=== PATIENT | female | born 1950 | race Caucasian/White ===

== ENCOUNTER 2017-04-18 07:50 | Outpatient (CLI) | payer OTHER ==
[2017-04-18 12:15] LABS: BASOPHILS # (AUTO) 0.1 10^3/uL (0.0-0.1); BASOPHILS % (AUTO) 1.1 %; EOSINOPHILS # (AUTO) 0.2 10^3/uL (0.0-0.7); EOSINOPHILS % (AUTO) 3.9 %; HCT - HEMATOCRIT 39.3 % (37.0-47.0); LYMPHOCYTES # (AUTO) 1.2 10^3/uL (1.5-3.5); LYMPHOCYTES % (AUTO) 23.8 %; MEAN CORPUSCULAR HEMOGLOBIN 32.1 pg (27.0-31.0); MEAN CORPUSCULAR HGB CONC 33.2 g/dL (32.0-36.0); MEAN CORPUSCULAR VOLUME 96.6 fL (81.0-99.0); MEAN PLATELET VOLUME 8.4 fL (7.9-10.8); MONOCYTES # (AUTO) 0.4 10^3/uL (0.0-1.0); MONOCYTES % (AUTO) 7.4 %; NEUTROPHILS # (AUTO) 3.1 10^3/uL (1.5-6.6); NEUTROPHILS % (AUTO) 63.8 %; RED BLOOD COUNT 4.07 10^6/uL (4.20-5.40); RED CELL DISTRIBUTION WIDTH 12.3 % (12.0-15.0); UNCORRECTED WHITE BLOOD COUNT 4.9 x10^3/uL; WHITE BLOOD COUNT 4.9 x10^3/uL (4.8-10.8)
[2017-04-18 12:27] LABS: ALBUMIN/GLOBULIN RATIO 1.6 (1.0-2.2); BILIRUBIN,TOTAL 0.6 mg/dL (0.2-1.0); BUN - BLOOD UREA NITROGEN 15 mg/dL (6-20); CARBON DIOXIDE - CO2 27 mmol/L (21-32); CHLORIDE 104 mmol/L (101-111); CREATININE 0.7 mg/dL (0.4-1.0); GFR - MDRD 83 (>89); GLUCOSE 84 mg/dL (70-100); IRON 105 ug/dL (28-170); POTASSIUM 4.1 mmol/L (3.5-5.0); SODIUM 141 mmol/L (135-145); TOTAL IRON BINDING CAPACITY 283 ug/dL (250-450); TOTAL PROTEIN 6.5 g/dL (6.7-8.2); TRANSFERRIN 202 mg/dL (192-382)
[2017-04-18 12:38] LABS: THYROID STIMULATING HORMONE 2.14 uIU/mL (0.34-5.60)
[2017-04-18 12:44] LABS: FERRITIN 94.9 ng/mL (11.0-306.8)
[2017-04-18 13:10] LABS: CHOL/HDL RATIO 3.5 (<4.4); CHOLESTEROL 244 mg/dL; HDL CHOLESTEROL 70 mg/dL; LDL/HDL RATIO 2.2 (<4.4); TRIGLYCERIDES 114 mg/dL; VLDL CHOLESTEROL 23 mg/dL
== END 2017-04-18 07:51 | disposition home or self-care (01) ==
LOC: LAB.F 07:50
PROVIDERS: ATTEND Nurse Practitioner Primary Care
DX: A60.00 Herpesviral infection of urogenital system, unspecified (principal); R12 Heartburn; R68.89 Other general symptoms and signs; R42 Dizziness and giddiness; R79.0 Abnormal level of blood mineral; J45.998 Other asthma; K30 Functional dyspepsia; M19.049 Primary osteoarthritis, unspecified hand; G43.909 Migraine, unspecified, not intractable, without status migrainosus
CPT/HCPCS: 36415; 80053; 80061; 82728; 83540; 84443; 84466; 85025

== ENCOUNTER 2017-06-25 09:51 | Outpatient (CLI) | payer MEDICARE ==
--- NOTE | 2017-06-27 10:11 | XRAY Report ---
DATE OF SERVICE: 06/25/2017 LEFT FOOT: 06/25/2017 No comparison. INDICATION: Second toe pain for 2 months. FINDINGS Normal alignment. No evidence of acute fracture. There are mild degenerative changes of the first metatarsophalangeal joint. IMPRESSION: Mild osteoarthritis of the first MTP joint. TD: 06/25/2017 19:47 [facility]
== END 2017-06-25 09:52 | disposition home or self-care (01) ==
LOC: DI 09:51
PROVIDERS: ATTEND Nurse Practitioner Primary Care
DX: M19.072 Primary osteoarthritis, left ankle and foot (principal)

== ENCOUNTER 2017-12-29 08:14 | Emergency (ER) | payer MEDICARE ==
[2017-12-29 08:32] VITALS: BP 130/86
--- NOTE | 2017-12-29 09:12 | ED Physician Documentation ---
PD HPI URI - Stated complaint Stated Complaint: SOA/COUGH - Chief complaint Chief Complaint: Resp - History obtained from History obtained from: Patient - History of Present Illness Timing - onset: How many weeks ago (3) Timing duration: Weeks (3) Timing details: Gradual onset, Still present (worse the past 2-3 days) Associated symptoms: Nasal congestion, Dry cough, Dyspnea. No: Fever, Sore throat, Hemoptysis, Chest pain, NVD Contributing factors: COPD / asthma. No: Sick contact, Travel, Immunocompromised Improves by: MDI/nebulizer Worsened by: Activity Recently seen: Not recently seen Review of Systems Constitutional: reports: Chills, Myalgias. denies: Fever Nose: reports: Congestion. denies: Rhinorrhea / runny nose Throat: denies: Sore throat Cardiac: denies: Chest pain / pressure Respiratory: reports: Dyspnea, Cough, Wheezing GI: denies: Nausea, Vomiting, Diarrhea Skin: denies: Rash, Lesions PD PAST MEDICAL HISTORY - Past Medical History Cardiovascular: None Respiratory: Asthma, COPD Neuro: None - Present Medications Home Medications: Ambulatory Orders Medication Instructions Recorded Confirmed Albuterol Sulf [Ventolin Hfa 2 - 4 puffs INH Q4HR PRN #1 inhaler 12/29/17 Inhaler] Benzonatate [Tessalon] 100 mg PO TID PRN #25 capsule 12/29/17 Dexamethasone [Decadron] 4 mg PO DAILY #7 tablet 12/29/17 Doxycycline Monohydrate 100 mg PO BID #14 tablet 12/29/17 Fluticasone/Salmeterol [Advair 1 inh INH BID 12/29/17 12/29/17 250-50 Diskus] - Allergies Allergies/Adverse Reactions: Allergies Allergy/AdvReac Type Severity Reaction Status Date / Time No Known Drug Allergies Allergy Verified 12/29/17 08:32 PD ED PE NORMAL - Vitals Vital signs reviewed: Yes - General General: Alert and oriented X 3, Well developed/nourished, Other (some prolonged exp phase. Wheezing noted. ) - HEENT HEENT: Ears normal, Pharynx benign - Neck Neck: Supple, no meningeal sign, No adenopathy, No JVD - Cardiac Cardiac: RRR, No murmur - Respiratory Respiratory: No: Clear bilaterally (wheezing) - Abdomen Abdomen: Soft, Non tender - Derm Derm: Normal color, Warm and dry, No rash - Extremities Extremities: No deformity, No tenderness to palpate, Normal ROM s pain, No edema , No calf tenderness / cord - Neuro Neuro: Alert and oriented X 3, No motor deficit, Normal speech Results - Vitals Vitals: Oxygen O2 Source Room air - Rads (name of study) chest xray Radiology: Prelim report reviewed (no acute process. evidence of COPD. ) PD MEDICAL DECISION MAKING - ED course Complexity details: considered differential, d/w patient - Sepsis Event Vital Signs: Oxygen O2 Source Room air Departure - Departure Disposition: Home, Self Care Clinical Impression: Upper respiratory infection Qualifiers: URI type: unspecified URI Qualified Code(s): J06.9 - Acute upper respiratory infection, unspecified Acute asthma exacerbation Qualifiers: Asthma severity: mild Asthma persistence: intermittent Qualified Code(s): J45.21 - Mild intermittent asthma with (acute) exacerbation Condition: Stable Record reviewed to determine appropriate education?: Yes Instructions: ED Bronchitis Asthmatic Follow-Up: Tunde Woods ARNP [Primary Care Provider] - Prescriptions: Albuterol Sulf [Ventolin Hfa Inhaler] 2 - 4 puffs INH Q4HR PRN #1 inhaler PRN Reason: Shortness Of Air/Wheezing Benzonatate [Tessalon] 100 mg PO TID PRN #25 capsule PRN Reason: Cough Dexamethasone [Decadron] 4 mg PO DAILY #7 tablet Doxycycline Monohydrate 100 mg PO BID #14 tablet Comments: Use your albuterol inhaler 3-4 puffs 4 times a day for the next 7-10 days. Add extra doses when needed. He can continue the prior cough medicine. Add Tessalon (benzoin 08) if needed for cough. Doxycycline twice daily antibiotic for a week for potential bacterial infection. Decadron steroid daily for 7 days. The steroid will help quite a bit at reducing inflammation and thus improve cough and breathing. However will have its effect slowly through the course of the day today and not work immediately this morning. Discharge Date/Time: 12/29/17 10:47
[2017-12-29] MEDS ORDERED: IPRATROPIUM/ALBUTEROL 3 ML NEB INH STA (09:22)
[2017-12-29] MEDS ORDERED: DEXAMETHASONE 10 MG/ML VIAL PO STA (09:22)
[2017-12-29] MEDS ORDERED: BENZONATATE 100 MG CAPSULE PO STA (09:22)
[2017-12-29] MEDS ORDERED: IPRATROPIUM/ALBUTEROL 3 ML NEB INH ONE (09:25)
[2017-12-29] MEDS ORDERED: CHERRY SYRUP 10 ML UDC PO ONE (09:43)
--- NOTE | 2017-12-29 09:43 | XRAY Report ---
Procedure Date: 12/29/2017 Accession Number: [id number] / [id number] Procedure: XR - Chest 2 View X-Ray CPT Code: 35076 FULL RESULT: EXAM: CHEST RADIOGRAPHY EXAM DATE: 12/29/2017 08:58 AM. CLINICAL HISTORY: Cough x three weeks. COMPARISON: None. TECHNIQUE: 2 views. FINDINGS: Lungs/Pleura: No focal opacities evident. No pleural effusion. No pneumothorax. Mild pulmonary hyperinflation suggests COPD. Mediastinum: Aortic calcifications are present. Heart size is normal. Other: None. IMPRESSION: 1. No convincing acute cardiopulmonary abnormality. 2. Evidence of COPD. RADIA
== END 2017-12-29 10:47 | disposition home or self-care (01) ==
LOC: ED 08:14
DX: J06.9 Acute upper respiratory infection, unspecified (principal); J45.21 Mild intermittent asthma with (acute) exacerbation; J44.9 Chronic obstructive pulmonary disease, unspecified
CPT/HCPCS: 71046; 94640; 99283; A9270

== ENCOUNTER 2018-02-26 15:11 | Outpatient (CLI) | payer MEDICARE ==
--- NOTE | 2018-02-26 15:36 | XRAY Report ---
Reason: REACTIVE AIRWAY DISEASE Procedure Date: 02/26/2018 Accession Number: [id number] / [id number] Procedure: XR - Chest 2 View X-Ray CPT Code: 51824 FULL RESULT: EXAM: CHEST RADIOGRAPHY, 2 VIEWS. EXAM DATE: 02/26/2018 03:22 PM. CLINICAL HISTORY: 67-year-old female with reactive airway disease with productive cough. COMPARISON: Chest 2 view 12/29/2017. TECHNIQUE: Upright PA and lateral views. FINDINGS: Lungs/Pleura: No focal opacities evident. No pleural effusion. No pneumothorax. Moderate hyperinflation, as previously. Mediastinum: Heart and mediastinal contours are unremarkable. No adenopathy or pulmonary vascular congestion. Other: Trachea is midline. Postsurgical change left shoulder, as previously. Osseous structures otherwise unremarkable. IMPRESSION: Stable chest. Moderate hyperinflation consistent with COPD. No pneumonia, CHF or other acute process. RADIA
== END 2018-02-26 15:12 | disposition home or self-care (01) ==
LOC: DI 15:11
PROVIDERS: ATTEND Physician Assistant Medical
DX: J45.909 Unspecified asthma, uncomplicated (principal)
CPT/HCPCS: 71046

== ENCOUNTER 2018-03-03 07:19 | Outpatient (CLI) | payer MEDICARE ==
--- NOTE | 2018-03-03 08:07 | CT Report ---
Reason: COUGH, REACTIVE AIRWAY DISEASE Procedure Date: 03/03/2018 Accession Number: [id number] / [id number] Procedure: CT - Sinuses CPT Code: FULL RESULT: EXAM: CT SINUS EXAM DATE: 03/03/2018 07:34 AM. HISTORY: Chronic cough. Pressure in the sinuses under the eyes. COMPARISONS: None. TECHNIQUE: Routine multi-axial CT imaging performed through the sinuses. Iodinated IV contrast: None. Reconstructions: Coronal. In accordance with CT protocol optimization, one or more of the following dose reduction techniques were utilized for this exam: automated exposure control, adjustment of mA and/or KV based on patient size, or use of iterative reconstructive technique. FINDINGS: RIGHT Frontal: Hypoplastic but otherwise unremarkable. Ethmoid: Normal. Maxillary: Normal. Sphenoid: Partial opacification posteriorly by retained bubbly secretions. Drainage Pathways: No evidence for sinus obstruction. LEFT Frontal: Hypoplastic but otherwise unremarkable. Ethmoid: Normal. Maxillary: Normal. Sphenoid: Normal. Drainage Pathways: The frontal recess, ostiomeatal complex and sphenoethmoidal recess are patent and normal. Nasal Cavity: The nasal septum is mildly bowed to the right of midline. No mass or significant anatomic abnormality evident. Osseous Structures: No obstructive nasal passage mass. Orbits: Unremarkable. Other: Amorphous increased attenuation in the soft tissues anterior to the maxillary sinuses, probably partially calcified. This is nonspecific. Correlate clinically for history of injection of cosmetic fillers. Mild cavernous carotid artery atherosclerotic calcifications. IMPRESSION: Sphenoid sinusitis on the right, mild. The remaining paranasal sinuses are clear. RADIA
== END 2018-03-03 07:20 | disposition home or self-care (01) ==
LOC: DI 07:19
PROVIDERS: ATTEND Physician Assistant Medical
DX: J45.909 Unspecified asthma, uncomplicated (principal); J32.3 Chronic sphenoidal sinusitis
CPT/HCPCS: 70486

== ENCOUNTER 2018-09-01 08:25 | Outpatient (CLI) | payer MEDICARE ==
[2018-09-01 10:52] LABS: BASOPHILS % (AUTO) 1.2 %; EOSINOPHILS # (AUTO) 0.2 10^3/uL (0.0-0.7); EOSINOPHILS % (AUTO) 5.8 %; HGB - HEMOGLOBIN 13.3 g/dL (12.0-16.0); LYMPHOCYTES # (AUTO) 1.4 10^3/uL (1.5-3.5); LYMPHOCYTES % (AUTO) 41.3 %; MEAN CORPUSCULAR HEMOGLOBIN 32.6 pg (27.0-31.0); MEAN CORPUSCULAR HGB CONC 33.9 g/dL (32.0-36.0); MEAN CORPUSCULAR VOLUME 96.1 fL (81.0-99.0); MEAN PLATELET VOLUME 8.6 fL (7.9-10.8); MONOCYTES # (AUTO) 0.2 10^3/uL (0.0-1.0); NEUTROPHILS # (AUTO) 1.5 10^3/uL (1.5-6.6); NEUTROPHILS % (AUTO) 44.7 %; PLT - PLATELET COUNT 226 10^3/uL (130-450); RED BLOOD COUNT 4.09 10^6/uL (4.20-5.40); RED CELL DISTRIBUTION WIDTH 12.4 % (12.0-15.0); WHITE BLOOD COUNT 3.4 x10^3/uL (4.8-10.8)
[2018-09-01 10:56] LABS: ALBUMIN 4.2 g/dL (3.2-5.5); ALBUMIN/GLOBULIN RATIO 1.8 (1.0-2.2); ALKALINE PHOSPHATASE 43 IU/L (42-121); ALT ALANINE AMINOTRANSFERASE 20 IU/L (10-60); AST ASPARTATE AMINOTRANSFERASE 26 IU/L (10-42); BILIRUBIN,TOTAL 0.8 mg/dL (0.2-1.0); BUN - BLOOD UREA NITROGEN 21 mg/dL (6-20); CALCIUM 9.3 mg/dL (8.5-10.3); CARBON DIOXIDE - CO2 29 mmol/L (21-32); CHLORIDE 103 mmol/L (101-111); CHOL/HDL RATIO 2.9 (<4.4); CHOLESTEROL 242 mg/dL; CREATININE 0.7 mg/dL (0.4-1.0); GFR - MDRD 83 (>89); GLUCOSE 92 mg/dL (70-100); HDL CHOLESTEROL 84 mg/dL; LDL CHOLESTEROL,CALCULATED 146 mg/dL; LDL/HDL RATIO 1.7 (<4.4); SODIUM 142 mmol/L (135-145); TOTAL PROTEIN 6.5 g/dL (6.7-8.2); VLDL CHOLESTEROL 12 mg/dL
== END 2018-09-01 08:26 | disposition home or self-care (01) ==
LOC: LAB.F 08:25
PROVIDERS: ATTEND Internal Medicine
DX: Z12.11 Encounter for screening for malignant neoplasm of colon (principal); Z12.12 Encounter for screening for malignant neoplasm of rectum; D89.9 Disorder involving the immune mechanism, unspecified; Z13.6 Encounter for screening for cardiovascular disorders; Z79.899 Other long term (current) drug therapy; J45.909 Unspecified asthma, uncomplicated; J47.9 Bronchiectasis, uncomplicated; K21.9 Gastro-esophageal reflux disease without esophagitis; Z11.59 Encounter for screening for other viral diseases
CPT/HCPCS: 36415; 80053; 80061; 83721; 84443; 85025; 86803

== ENCOUNTER 2018-09-02 08:00 | Outpatient (CLI) | payer MEDICARE | END 2018-09-02 23:59 | disposition home or self-care (01) | LOC: LAB.R 08:00 | PROVIDERS: ATTEND Internal Medicine | DX: Z12.11 Encounter for screening for malignant neoplasm of colon (principal); Z12.12 Encounter for screening for malignant neoplasm of rectum | CPT/HCPCS: 82274 ==

== ENCOUNTER 2019-02-12 16:34 | Outpatient (CLI) | payer MEDICARE ==
--- NOTE | 2019-02-13 10:32 | XRAY Report ---
Reason: PAIN IN LOW BACK AND SACRUM AFTER FALL Procedure Date: 02/12/2019 Accession Number: [id number] / [id number] Procedure: XR - Lumbar Spine 2 View CPT Code: FULL RESULT: EXAM: LUMBOSACRAL SPINE RADIOGRAPHY EXAM DATE: 02/12/2019 04:51 PM. CLINICAL HISTORY: Low back pain and sacral pain status post trauma during a ground-level fall 1 week prior to this examination. COMPARISONS: None. TECHNIQUE: 2 views. FINDINGS: Alignment: Normal lumbar lordosis. Grade 1 (2.7 mm) anterolisthesis of L3 with respect to L4. No other vertebral body subluxation. Thoracolumbar dextrocurvature, incompletely imaged. Bones: Five ery-nxu-[id number] lumbar vertebral bodies are present. No fractures or bone lesions. No congenital vertebral anomaly. Pedicles are intact. Disks: Intervertebral disk space narrowing at L3-L4 and L5-S1. Intervertebral disk space heights are otherwise preserved. Facets: Bilateral facet arthrosis at L3-L4, L4-L5 and L5-S1. Sacroiliac Joints: Unremarkable. Soft Tissues: Postsurgical changes in both inguinal regions. Moderate stool in the colon. IMPRESSION: 1. No acute findings. 2. Degenerative anterolisthesis of L3 with respect to L4 secondary to bilateral L3-L4 facet arthrosis. 3. Degenerative disk disease at L3-L4 and L5-S1. 4. Moderate stool in the colon. RADIA
--- NOTE | 2019-02-13 10:34 | XRAY Report ---
Reason: PAIN IN LOW BACK AND SACRUM AFTER FALL Procedure Date: 02/12/2019 Accession Number: [id number] / [id number] Procedure: XR - Pelvis 1 View CPT Code: FULL RESULT: EXAM: PELVIS RADIOGRAPHY EXAM DATE: 02/12/2019 04:51 PM. CLINICAL HISTORY: Persistent low back pain and sacral pain status post trauma during a ground-level fall 1 week prior to this examination. COMPARISON: None. TECHNIQUE: 1 view. FINDINGS: Bones: Normal in mineralization. No fracture or bone lesion. Joints: Hips, sacroiliac joints and pubic symphysis are intact. No subluxation. No hip joint effusion. Bilateral facet arthrosis at L3-L4, L4-L5 and L5-S1. Soft Tissues: Moderate stool in the colon. Postsurgical changes in the inguinal regions bilaterally. IMPRESSION: 1. No acute findings. 2. Moderate stool in the colon. 3. Postsurgical changes in the inguinal regions. RADIA
== END 2019-02-12 16:35 | disposition home or self-care (01) ==
LOC: DI 16:34
PROVIDERS: ATTEND Internal Medicine
DX: M51.36 Other intervertebral disc degeneration, lumbar region (principal); R10.2 Pelvic and perineal pain
CPT/HCPCS: 72100; 72170

== ENCOUNTER 2020-04-08 19:56 | Outpatient (CLI) | payer MEDICARE | END 2020-04-08 19:57 | disposition home or self-care (01) | LOC: COV 19:56 | PROVIDERS: ATTEND Family Medicine | DX: R50.9 Fever, unspecified (principal); M79.10 Myalgia, unspecified site; R53.83 Other fatigue; R09.81 Nasal congestion; Z20.828 Contact with and (suspected) exposure to other viral communicable diseases ==